=== PATIENT | male | born 1995 | race Two or more races ===

== ENCOUNTER 2020-05-02 18:09 | Inpatient (IN) | payer OTHER, SELFPAY ==
[~2020-05-02] VITALS: Ht 172.7 cm; Wt 118.6 kg
[2020-05-02] MEDS ORDERED: ONDANSETRON 2MG/ML, 2ML ONE (19:39)
[2020-05-02] MEDS ORDERED: MORPHINE SULFATE 4 MG/ML, 1ML ONE ×2 (19:39→21:01)
[2020-05-02 19:49] LABS: BASOPHILS # (AUTO) 0.03 x10^3/uL (0-0.1); BASOPHILS % (AUTO) 0 % (0-1); EOSINOPHILS # (AUTO) 0.02 x10^3/uL (0-0.4); EOSINOPHILS % (AUTO) 0 % (1-7); LYMPHOCYTES # (AUTO) 2.07 x10^3/uL (1-3.4); LYMPHOCYTES % (AUTO) 16 % (22-44); MD NO; MEAN CORPUSCULAR HEMOGLOBIN 30.9 pg (27.5-34.5); MEAN CORPUSCULAR HGB CONC 33.5 g/dL (33.2-36.2); MEAN CORPUSCULAR VOLUME 92.3 fL (81-97); MEAN PLATELET VOLUME 7.1 fL (7.4-10.4); MONOCYTES # (AUTO) 1.01 x10^3/uL (0.2-0.8); MONOCYTES % (AUTO) 8 % (2-9); NEUTROPHILS # (AUTO) 9.94 x10^3/uL (1.8-6.8); NEUTROPHILS % (AUTO) 76 % (42-75); PLATELET COUNT 302 x10^3/uL (130-400); RED BLOOD COUNT 4.91 x10^6/uL (4.38-5.82); RED CELL DISTRIBUTION WIDTH 13.4 % (9.4-14.8)
[2020-05-02] MEDS: MORPHINE SULFATE 4 MG/ML, 1ML IVPush PRN ×2 (19:52→21:05)
[2020-05-02 19:58] LABS: ALANINE AMINOTRANSFERASE 106 U/L (12-78); ALBUMIN 3.9 g/dL (3.4-5.0); ANION GAP 8 mmol/L (5-15); CALCIUM 8.9 mg/dL (8.5-10.1); CHLORIDE 107 mmol/L (98-107); CREATININE 1.81 mg/dL (0.7-1.3)
[2020-05-02 20:00] LABS: ALKALINE PHOSPHATASE 65 U/L (45-117); BILIRUBIN,TOTAL 0.7 mg/dL (0.2-1.0)
[2020-05-02] MEDS ORDERED: SODIUM CHLORIDE 0.9% 1,000ML IVBOLUS ONE (20:00)
[2020-05-02] MEDS ORDERED: ONDANSETRON 2MG/ML, 2ML IVPush ONE (20:00)
--- NOTE | 2020-05-02 20:01 | NUR ---
DELAYED NOTE D/T PT CARE: PT COMPLAINING OF L SIDED FLANK PAIN THAT RADIATES DOWN HIS L LEG WHICH STARTED YESTERDAY. PT STATES HE IS UNABLE TO TOLERATE ANYTHING PO AND HAS N/V. DENIES INJURY OR TRAUMA, CP, SOB, COUGH, FEVER, ABD PAIN. PAST HX OF PULLED MUSCLE IN BACK 2-3 YEARS AGO PER PT. EKG COMPLETED. PLACED PT ON MONITOR AND OBTAINED IV AND LABS. VS STABLE. MEDICATED PT PER EMAR. WILL CONTINUE TO MONITOR PT.
[2020-05-02 21:03] LABS: MICROSCOPIC AUTO
[2020-05-02] MEDS ORDERED: SODIUM CHLORIDE 0.9% 1,000 ML IV ONE (22:34)
[2020-05-02] MEDS ORDERED: MORPHINE SULFATE 4 MG/ML, 1ML IVPush PRN (23:00)
[2020-05-02] MEDS ORDERED: DOCUSATE 100 MG CAPSULE PO PRN (23:00)
[2020-05-02] MEDS: LACTATED RINGERS 1,000 ML IV SCH (23:00)
[2020-05-02] MEDS ORDERED: ONDANSETRON 2MG/ML, 2ML IVPush PRN ×2 (23:00)
[2020-05-03] MEDS: CEFTRIAXONE PMX 1GM/50ML 50 ML IV SCH (00:35)
[2020-05-03] MEDS: morphine SULFATE 10 MG/ML, 1ML IVPush PRN ×4 (00:36→12:36)
[2020-05-03 00:39] VITALS: BP 123/72
[2020-05-03 06:25] LABS: BASOPHILS # (AUTO) 0.01 x10^3/uL (0-0.1); BASOPHILS % (AUTO) 0 % (0-1); EOSINOPHILS # (AUTO) 0.08 x10^3/uL (0-0.4); EOSINOPHILS % (AUTO) 1 % (1-7); LYMPHOCYTES # (AUTO) 2.21 x10^3/uL (1-3.4); LYMPHOCYTES % (AUTO) 18 % (22-44); MD NO; MEAN CORPUSCULAR HEMOGLOBIN 31.2 pg (27.5-34.5); MEAN CORPUSCULAR HGB CONC 33.7 g/dL (33.2-36.2); MEAN CORPUSCULAR VOLUME 92.5 fL (81-97); MEAN PLATELET VOLUME 7.3 fL (7.4-10.4); MONOCYTES # (AUTO) 1.16 x10^3/uL (0.2-0.8); MONOCYTES % (AUTO) 10 % (2-9); NEUTROPHILS % (AUTO) 72 % (42-75); PLATELET COUNT 290 x10^3/uL (130-400); RED BLOOD COUNT 4.87 x10^6/uL (4.38-5.82); RED CELL DISTRIBUTION WIDTH 13.5 % (9.4-14.8)
[2020-05-03 06:35] LABS: CHLORIDE 107 mmol/L (98-107)
[2020-05-03 06:43] LABS: ANION GAP 7 mmol/L (5-15); CALCIUM 8.5 mg/dL (8.5-10.1); CREATININE 1.71 mg/dL (0.7-1.3)
[2020-05-03] MEDS: LACTATED RINGERS 1,000 ML IV SCH (07:50)
[2020-05-03 08:19] VITALS: BP 128/76
[2020-05-03 12:44] VITALS: BP 123/81
[2020-05-03] MEDS: OXYcodone IR 5MG TABLET PO PRN ×3 (13:18→22:41)
[2020-05-03] MEDS ORDERED: CHLORHEXIDINE 15 ML UDC MM ONE (14:41)
[2020-05-03] MEDS ORDERED: BICT1TAB PO (15:19)
[2020-05-03] MEDS ORDERED: FENTANYL PF 250 MCG/5ML ONE (16:20)
[2020-05-03] MEDS ORDERED: MIDAZOLAM 1 MG/ML, 2ML ONE (16:20)
[2020-05-03] MEDS ORDERED: ACETAMINOPHEN 325 MG TABLET PO PRN (17:00)
[2020-05-03] MEDS ORDERED: LORazepam 2 MG/ML, 1ML IVPush PRN (17:00)
[2020-05-03] MEDS ORDERED: PROMETHAZINE 25 MG SUPP PR PRN (17:00)
[2020-05-03] MEDS ORDERED: ONDANSETRON 2MG/ML, 2ML IVPush PRN (17:00)
[2020-05-03] MEDS ORDERED: FENTANYL PF 100 MCG/2ML IV PRN (17:00)
[2020-05-03] MEDS ORDERED: PROMETHAZINE 25 MG/ML, 1ML IVPush PRN (17:00)
[2020-05-03] MEDS ORDERED: HYDROmorphone 1 MG/ML, 1ML INJ IVPush PRN (17:00)
[2020-05-03] MEDS ORDERED: OXYcodone 5 MG/5 ML ORAL.SOL UDC PO PRN (17:00)
[2020-05-03] MEDS ORDERED: DEXAMETHASONE 4 MG/ML, 1ML ONE (17:10)
[2020-05-03] MEDS ORDERED: SUCCINYLCHOLINE 20 MG/ML, 10ML ONE (17:10)
[2020-05-03] MEDS ORDERED: GLYCOPYRROLATE 0.2MG/1ML, 5ML ONE (17:10)
[2020-05-03] MEDS ORDERED: NEOSTIGMINE 1 MG/ML, 10ML ONE (17:10)
[2020-05-03] MEDS ORDERED: ONDANSETRON 2MG/ML, 2ML ONE (17:10)
[2020-05-03] MEDS ORDERED: ROCURONIUM 10MG/ML,5ML ONE (17:10)
[2020-05-03] MEDS ORDERED: CEFAZOLIN 1,000 MG ONE (17:10)
[2020-05-03] MEDS ORDERED: PROPOFOL 10 MG/ML, 20ML ONE (17:10)
[2020-05-03] MEDS ORDERED: MEPERIDINE/PF 100 MG/ML ONE (17:11)
[2020-05-03] MEDS ORDERED: SUGAMMADEX 200 MG/2 ML IVPush ONE (17:23)
[2020-05-03] MEDS ORDERED: VISIPAQUE 320MG/ML, 50ML BOTTLE ONE (18:00)
[2020-05-03 18:39] VITALS: BP 131/81
[2020-05-03] MEDS: ACETAMINOPHEN 325 MG TABLET PO PRN (20:12)
[2020-05-04 00:20] VITALS: BP 120/70
[2020-05-04] MEDS: ACETAMINOPHEN 325 MG TABLET PO PRN ×2 (00:42→09:31)
[2020-05-04] MEDS: CEFTRIAXONE PMX 1GM/50ML 50 ML IV SCH (00:42)
[2020-05-04] MEDS: LACTATED RINGERS 1,000 ML IV SCH ×2 (00:42→11:35)
[2020-05-04] MEDS: OXYcodone IR 5MG TABLET PO PRN ×2 (05:00→09:31)
[2020-05-04] MEDS: morphine SULFATE 10 MG/ML, 1ML IVPush PRN (05:46)
[2020-05-04 08:15] VITALS: BP 124/76
[2020-05-04] MEDS ORDERED: CIPR250T2 PO (12:23)
[2020-05-04] MEDS ORDERED: HYDR-3240 PO (12:23)
== END 2020-05-04 12:59 | disposition home or self-care (01) | DRG 690 ==
LOC: ED 19:50 → EDIP 22:44 → 4NW 05-03 00:12
PROVIDERS: ADMIT Hospitalist; ATTEND Hospitalist
PROC: 0TF78ZZ Fragmentation in Left Ureter, Via Natural or Artificial Opening Endoscopic (ICD-10-PCS; 2020-05-03)
PROC: 0T7D8DZ Dilation of Urethra with Intraluminal Device, Via Natural or Artificial Opening Endoscopic (ICD-10-PCS; principal; 2020-05-03 16:30)
DX: N13.6 Pyonephrosis (principal); D72.829 Elevated white blood cell count, unspecified; N17.9 Acute kidney failure, unspecified; E66.9 Obesity, unspecified; F12.10 Cannabis abuse, uncomplicated; R74.0 Nonspecific elevation of levels of transaminase and lactic acid dehydrogenase [LDH]; Z90.49 Acquired absence of other specified parts of digestive tract
CPT/HCPCS: 36415; 74018; 74176; 76000; 80048; 80053; 81001; 83690; 83735; 84100; 85025; 87086; 87635; 93005; G0378; J0690; J0696; J1100; J2250; J2405; J2704; J2710; J3010; Q9967; C1769; C2617; J0330; J2175; J2270; J7030; J7120; U0001-CS

== ENCOUNTER 2020-08-12 08:10 | Emergency (ER) | payer MEDICAID, OTHER ==
[~2020-08-12] VITALS: Ht 170.2 cm; Wt 119.0 kg
[~2020-08-12 08:10] MED LIST: BICT1TAB PO; CIPR250T2 PO; HYDR-3240 PO
--- NOTE | 2020-08-12 09:04 | NUR ---
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
[2020-08-12] MEDS ORDERED: SODIUM CHLORIDE 0.9% 1,000ML IV ONE (09:30)
[2020-08-12] MEDS ORDERED: HYDROmorphone 2 MG/ML, 1ML IVPush PRN (09:30)
[2020-08-12] MEDS ORDERED: KETOROLAC 30 MG/1 ML IVPush ONE (09:30)
[2020-08-12] MEDS ORDERED: SODIUM CHLORIDE FLUSH 10ML SYR IVF ONE (09:30)
[2020-08-12] MEDS ORDERED: ONDANSETRON 2MG/ML, 2ML IVPush ONE (09:30)
--- NOTE | 2020-08-12 09:31 | NUR ---
PT CO ABD PAIN SINCE 3AM 09/07. PT STATES THIS IS SIMILAR TO HIS PREVIOUS KIDNEY STONE EXPERIENCE.
[2020-08-12] MEDS ORDERED: HYDROmorphone 1 MG/ML, 1ML INJ ONE (09:37)
[2020-08-12] MEDS ORDERED: ONDANSETRON 2MG/ML, 2ML ONE (09:37)
[2020-08-12] MEDS ORDERED: KETOROLAC 30 MG/1 ML ONE (09:37)
--- NOTE | 2020-08-12 09:51 | NUR ---
MEDICATED PER JAN. PAIN 02/05
--- NOTE | 2020-08-12 09:59 | NUR ---
OFF THE FLOOR TO CT
--- NOTE | 2020-08-12 10:53 | NUR ---
REPORT FROM ARON VAZQUEZ AND JAY VAZQUEZ. PT CARE RESPONSIBLITIES ASSUMED.
[2020-08-12 10:59] VITALS: BP 117/66
--- NOTE | 2020-08-12 10:59 | NUR ---
PT STATES PAIN IS CURRENTLY A 0/10. HAND OFF TO GEORGE PENNY.
== END 2020-08-12 11:09 | disposition home or self-care (01) ==
LOC: ED 10:29
DX: N13.2 Hydronephrosis with renal and ureteral calculous obstruction (principal); Z90.89 Acquired absence of other organs
CPT/HCPCS: 74176; 96361; 96374; 96375; 99284; J1170; J1885; J2405; J7030